=== PATIENT | female | born 1990 | race Caucasian/White ===

== ENCOUNTER 2019-12-29 11:59 | Emergency (ER) | payer OTHER, SELFPAY ==
[2019-12-29 12:33] VITALS: BP 129/63; PULSE 75; RESP 19; TEMP 36.8; O2SAT 96; BMI 34.4
--- NOTE | 2019-12-29 14:57 | PC.NURSE ---
patient states that when she was at work she injured herself while trying to transfer a patient. Her lower lumbar hurts and the pain is radiating mostly bilaterally but also slightly to the upper middle spine. She denies any bowel or bladder function changes
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
[2019-12-29 16:00] LABS: Amorphous Sediment Urine 1+; Bacteria Urine Moderate (10-30); RBC Urine >100/HPF (0-5/HPF); Squamous Epithelial Cell Urine 1-5 /HPF (0-5/HPF); WBC Urine 5-10/HPF (0-5/HPF)
[2019-12-29 16:01] LABS: Culture Indicated Urine Specimen Cultured; Mucus Urine 1+ (Negative)
[2019-12-29 16:26] VITALS: BP 125/83; PULSE 68; RESP 16; O2SAT 99
== END 2019-12-29 16:27 | disposition home or self-care (01) ==
PROVIDERS: Emergency Provider Student in an Organized Health Care Education/Training Program
DX: S39.012A Strain of muscle, fascia and tendon of lower back, initial encounter (principal); X50.9XXA Other and unspecified overexertion or strenuous movements or postures, initial encounter; Y93.F2 Activity, caregiving, lifting; Y99.0 Civilian activity done for income or pay
CPT/HCPCS: 72100; 81003; 81015; 87086; 99283